=== PATIENT | male | born 1965 | race Caucasian/White ===

== ENCOUNTER 2017-08-20 10:03 | Emergency (ER) | payer OTHER ==
[2017-08-20 10:09] VITALS: BP 142/68
--- NOTE | 2017-08-20 10:40 | ER Document Report ---
ED Neck/Back Problem - General Chief Complaint: Neck Pain >24hrs old Stated Complaint: NECK PAIN Time Seen by Provider: 08/20/17 10:28 Mode of Arrival: Ambulatory Information source: Patient TRAVEL OUTSIDE OF THE [place] IN LAST 30 DAYS: No - HPI Patient complains to provider of: Pain, Neck Onset: Other - 3 days Where: Home Onset: Gradual Timing: Waxing and waning Quality of pain: Achy Severity: Moderate Pain Level: 4 Recent injury: No Associated symptoms: None Exacerbated by: Movement of neck Relieved by: Nothing Similar symptoms previously: Yes Recently seen / treated by doctor: Yes Notes: Patient is a 52-year-old male presenting to the emergency room complaining of pain to the right neck, symptoms have been going on over the past 3 days although he has had intermittent symptoms since 2002 when he initially injured his neck, he denies any new injury, no numbness or tingling to his extremities, [facility] but did not prescribe him anything for the pain, patient denies any fevers, no headaches , states he has not taken anything for the pain at home because Tylenol and Motrin does not help and he does not have anything additional for pain, he has been applying cold and heat packs intermittently, attempting to gently stretch the neck, with no relief, states he was unable to sleep last night due to the pain Past Medical History - General Information source: Patient - Social History Smoking Status: Current Every Day Smoker Family History: Reviewed & Not Pertinent Renal/ Medical History: Denies: Hx Peritoneal Dialysis Review of Systems - Review of Systems Constitutional: No symptoms reported EENT: No symptoms reported Cardiovascular: No symptoms reported Respiratory: No symptoms reported Gastrointestinal: No symptoms reported Genitourinary: No symptoms reported Male Genitourinary: No symptoms reported Musculoskeletal: See HPI Skin: No symptoms reported Hematologic/Lymphatic: No symptoms reported Neurological/Psychological: No symptoms reported -: Yes All other systems reviewed and negative Physical Exam - Vital signs Vitals: Temp Pulse Resp BP Pulse Ox 97.9 F 80 16 142/68 H 95 08/20/17 10:06 08/20/17 10:06 08/20/17 10:06 08/20/17 10:06 08/20/17 10:06 - Notes Notes: - General General appearance: Appears well, Alert In distress: None - HEENT Head: Normocephalic, Atraumatic Eyes: Normal Conjunctiva: Normal Extraocular movements intact: Yes Eyelashes: Normal Pupils: PERRL - Respiratory Respiratory status: No respiratory distress - Cardiovascular Rhythm: Regular - Abdominal Inspection: Normal - Back Back: Normal - Extremities General upper extremity: Normal inspection General lower extremity: Normal inspection - Neurological Neuro grossly intact: Yes Orientation: AAOx4 [place] Coma Scale Eye Opening: Spontaneous [place] Coma Scale Verbal: Oriented James Coma Scale Motor: Obeys Commands [place] Coma Scale Total: 15 - Psychological Associated symptoms: Normal affect, Normal mood - Skin Skin Temperature: Warm Skin Moisture: Dry Skin Color: Normal - HEENT Neck: Other - Tenderness to palpate in the paraspinal musculature of the right cervical spine, pain with range of motion testing including right side bending and rotation which is restricted as well, distal sensation and motor is intact Course - Re-evaluation Re-evalutation: 08/20/17 10:40 Patient was a flareup of chronic neck pain has been going on for the past few days, he was seen at the [facility] and had x-rays done but he was not prescribed any medication for it, he denies any new injury, I discussed various treatment modalities with him including gentle stretching, massage, physical therapy, anti -inflammatory pain medication, and muscle relaxers, patient states that in the past muscle relaxer seemed to help the most, therefore he was given a prescription for a few day supply of Flexeril, he was advised to follow-up with his primary care provider or return if symptoms worsen, patient acknowledges understanding and agreement with this plan - Vital Signs Vital signs: Temp Pulse Resp BP Pulse Ox 97.9 F 80 16 142/68 H 95 08/20/17 10:06 08/20/17 10:06 08/20/17 10:06 08/20/17 10:06 08/20/17 10:06 Discharge - Discharge Clinical Impression: Cervical strain, acute Qualifiers: Encounter type: initial encounter Qualified Code(s): S16.1XXA - Strain of muscle, fascia and tendon at neck level, initial encounter Condition: Stable Disposition: HOME, SELF-CARE Instructions: Neck Injury (Cervical Strain) ([facility]), Muscle Strain ([facility]), Muscle Relaxers ([facility]) Additional Instructions: Follow up with your primary care provider in one to 2 days. Return to the emergency room immediately if symptoms worsen or any additional concerns. Prescriptions: Cyclobenzaprine HCl [Flexeril 10 Mg Tablet] 10 mg PO TID #14 tablet
== END 2017-08-20 10:39 | disposition home or self-care (01) ==
LOC: ER 10:03
DX: S16.1XXA Strain of muscle, fascia and tendon at neck level, initial encounter (principal); M54.2 Cervicalgia; X58.XXXA Exposure to other specified factors, initial encounter
CPT/HCPCS: 99283

== ENCOUNTER 2017-11-23 08:07 | Emergency (ER) | payer OTHER ==
[2017-11-23] MEDS ORDERED: DEXAMETHASONE 4 MG TABLET PO ONE (08:49)
[2017-11-23] MEDS ORDERED: AMOXICILLIN TRIHYDRATE 500 MG CAPSULE PO ONE (08:49)
--- NOTE | 2017-11-23 08:56 | ER Document Report ---
ED General - General Chief Complaint: Cold Symptoms Stated Complaint: CONGESTION TRAVEL OUTSIDE OF THE [place] IN LAST 30 DAYS: No - HPI Patient complains to provider of: Cold symptoms sinus pressure Notes: Patient states cough cold with yellow green sputum sinus pressure ongoing for the last 2 weeks. Patient states intermittent fevers night sweats. Patient denies any recent travel any recent antibiotics. Patient resting comfortably upon my evaluation. - Related Data Allergies/Adverse Reactions: Tetanus Vaccines and Toxoid Allergy (Verified 11/23/17 08:12) Past Medical History - Social History Smoking Status: Current Every Day Smoker Frequency of alcohol use: Heavy Drug Abuse: None Family History: Reviewed & Not Pertinent Patient has suicidal ideation: No Patient has homicidal ideation: No - Past Medical History Cardiac Medical History: Reports: Hx Hypertension Endocrine Medical History: Reports: Hx Diabetes Mellitus Type 2 Renal/ Medical History: Denies: Hx Peritoneal Dialysis Review of Systems - Review of Systems Constitutional: No symptoms reported EENT: Eye discharge, Nose pain, Nose congestion Cardiovascular: No symptoms reported Respiratory: No symptoms reported Gastrointestinal: No symptoms reported Genitourinary: No symptoms reported Male Genitourinary: No symptoms reported Musculoskeletal: No symptoms reported Skin: No symptoms reported Hematologic/Lymphatic: No symptoms reported Neurological/Psychological: No symptoms reported -: Yes All other systems reviewed and negative Physical Exam - Vital signs Vitals: Temp Pulse Resp BP Pulse Ox 97.6 F 97 21 H 123/68 95 11/23/17 08:13 11/23/17 08:13 11/23/17 08:13 11/23/17 08:13 11/23/17 08:13 Interpretation: Normal - General General appearance: Appears well, Alert - HEENT Head: Normocephalic, Atraumatic Eyes: Normal Conjunctiva: Normal Cornea: Normal Extraocular movements intact: Yes Eyelashes: Normal Pupils: PERRL Ears: Normal External canal: Normal Tympanic membrane: Normal Sinus: Frontal, Maxillary Nasal: Normal Pharynx: Normal Neck: Normal - Respiratory Respiratory status: No respiratory distress Chest status: Nontender Breath sounds: Normal Chest palpation: Normal - Cardiovascular Rhythm: Regular Heart sounds: Normal auscultation Murmur: No - Abdominal Inspection: Normal Distension: No distension Bowel sounds: Normal Tenderness: Nontender Organomegaly: No organomegaly - Back Back: Normal, Nontender - Extremities General upper extremity: Normal inspection, Nontender, Normal color, Normal ROM , Normal temperature General lower extremity: Normal inspection, Nontender, Normal color, Normal ROM , Normal temperature, Normal weight bearing. No: Greg's sign - Neurological Neuro grossly intact: Yes Cognition: Normal Orientation: AAOx4 James Coma Scale Eye Opening: Spontaneous James Coma Scale Verbal: Oriented [place] Coma Scale Motor: Obeys Commands [place] Coma Scale Total: 15 Speech: Normal Motor strength normal: LUE, RUE, LLE, RLE Sensory: Normal - Psychological Associated symptoms: Normal affect, Normal mood - Skin Skin Temperature: Warm Skin Moisture: Dry Skin Color: Normal Course - Re-evaluation Re-evalutation: 11/23/17 14:55 Patient symptoms are consistent with sinusitis. Due to length of symptoms ongoing for the last 2 weeks. Splint patient I will start him on amoxicillin. Patient is diabetic I will give him 1 dose of Decadron. Patient was educated that this will make his blood sugars elevated. Did not think this would cause any DKA or HHS. Patient also has a history of hypertension explained to the patient follow-up with his pharmacist for [id number] sinus decongestant medication - Vital Signs Vital signs: Temp Pulse Resp BP Pulse Ox 97.7 F 74 18 122/73 97 11/23/17 09:27 11/23/17 09:27 11/23/17 09:27 11/23/17 09:27 11/23/17 09:27 Discharge - Discharge Clinical Impression: Sinusitis Qualifiers: Sinusitis location: maxillary Chronicity: acute Recurrence: not specified as recurrent Qualified Code(s): J01.00 - Acute maxillary sinusitis, unspecified Condition: Good Disposition: HOME, SELF-CARE Instructions: Sinusitis ([facility]) Additional Instructions: Your examination today is consistent with a sinusitis. We will start you on amoxicillin antibiotic regimen due to symptoms been ongoing for approximately 2 weeks. He did receive a dose of steroids here in the ER which may cause your blood sugars to run little elevated for the next few days however this will help open up her sinuses make you feel better. Because of your blood pressure issues he will have to be very careful with decongestant medications. He may ask your pharmacist about [id number]-[id number] decongestants that would not affect your blood pressure such as a Coricidin HBP. I would also recommend that if you are not taking an antihistamine such as Zyrtec or Claritin that she start. This also help out with your symptoms. Continue to drink plenty of fluids to stay hydrated. For your cough he may use lgce-iev-[id number] lozenges or try honey mixed with your favorite drink. Follow-up with your primary care physician in 1-2 weeks. Prescriptions: Amoxicillin Trihydrate [Amoxil 500 mg Capsule] 500 mg PO TID #30 cap
[2017-11-23 09:27] VITALS: BP 122/73
== END 2017-11-23 09:30 | disposition home or self-care (01) ==
LOC: ER 08:07
DX: J01.00 Acute maxillary sinusitis, unspecified (principal); R09.81 Nasal congestion; R50.9 Fever, unspecified; F17.200 Nicotine dependence, unspecified, uncomplicated
CPT/HCPCS: 99284

== ENCOUNTER 2017-12-17 14:17 | Emergency (ER) | payer OTHER ==
[2017-12-17] MEDS ORDERED: BUPIVACAINE HCL 0.5 % INJ/PF 30 ML SDV INJ ONE (15:13)
--- NOTE | 2017-12-17 15:21 | ER Document Report ---
ED General - General Chief Complaint: Puncture Wound Stated Complaint: FINGER INJURY Time Seen by Provider: 12/17/17 15:13 Mode of Arrival: Ambulatory Information source: Patient Notes: 52 yr old male presents with drill injury to the left hand finger , pt dneies any other injuries, pt has anaphylaxis to tetanus TRAVEL OUTSIDE OF THE [place] IN LAST 30 DAYS: No COUNTRY TRAVELED TO/FROM: [facility] Onset: Just prior to arrival Onset/Duration: Sudden Quality of pain: Sharp Severity: Mild Pain Level: 1 Associated symptoms: Other Exacerbated by: Denies Relieved by: Denies Similar symptoms previously: No Recently seen / treated by doctor: No - Related Data Allergies/Adverse Reactions: Tetanus Vaccines and Toxoid Allergy (Verified 12/17/17 14:18) Past Medical History - Social History Smoking Status: Current Every Day Smoker Cigarette use (# per day): Yes Chew tobacco use (# tins/day): No Smoking Education Provided: No Frequency of alcohol use: Heavy Drug Abuse: None Family History: Reviewed & Not Pertinent Patient has suicidal ideation: No Patient has homicidal ideation: No - Past Medical History Cardiac Medical History: Reports: Hx Hypercholesterolemia, Hx Hypertension Endocrine Medical History: Reports: Hx Diabetes Mellitus Type 2 Renal/ Medical History: Denies: Hx Peritoneal Dialysis Past Surgical History: Reports: Hx Orthopedic Surgery - LEFT ULNAR Review of Systems - Review of Systems Notes: REVIEW OF SYSTEMS: CONSTITUTIONAL : Denies fever, chills, or sweats. Denies recent illness. EENT: Denies eye, ear, throat, or mouth pain or symptoms. Denies nasal or sinus congestion or discharge. Denies throat, tongue, or mouth swelling or difficulty swallowing. CARDIOVASCULAR: Denies chest pain. Denies palpitations or racing or irregular heart beat. Denies ankle edema. RESPIRATORY: Denies cough, cold, or chest congestion. Denies shortness of breath, difficulty breathing, or wheezing. GASTROINTESTINAL: Denies abdominal pain or distention. Denies nausea, vomiting , or diarrhea. Denies blood in vomitus, stools, or per rectum. Denies black, tarry stools. Denies constipation. GENITOURINARY: Denies difficulty urinating, painful urination, burning, frequency, blood in urine, or discharge. MUSCULOSKELETAL: Denies back or neck pain or stiffness. Denies joint pain or swelling. SKIN: Denies rash, lesions or sores. HEMATOLOGIC : Denies easy bruising or bleeding. LYMPHATIC: Denies swollen, enlarged glands. NEUROLOGICAL: Denies confusion or altered mental status. Denies passing out or loss of consciousness. Denies dizziness or lightheadedness. Denies headache. Denies weakness or paralysis or loss of use of either side. Denies problems with gait or speech. Denies sensory loss, numbness, or tingling. Denies seizures. PSYCHIATRIC: Denies anxiety or stress. Denies depression, suicidal ideation, or homicidal ideation. ALL OTHER SYSTEMS REVIEWED AND NEGATIVE. Dictation was performed using [employer] recognition software PHYSICAL EXAMINATION: GENERAL: Well-appearing, well-nourished and in no acute distress. HEAD: Atraumatic, normocephalic. EYES: Pupils equal round and reactive to light, extraocular movements intact, sclera anicteric, conjunctiva are normal. ENT: Nares patent, oropharynx clear without exudates. Moist mucous membranes. NECK: Normal range of motion, supple without lymphadenopathy LUNGS: Breath sounds clear to auscultation bilaterally and equal. No wheezes rales or rhonchi. HEART: Regular rate and rhythm without murmurs ABDOMEN: Soft, nontender, nondistended abdomen. No guarding, no rebound. No masses appreciated. Musculoskeletal: Normal range of motion, no pitting or edema. No cyanosis. NEUROLOGICAL: Cranial nerves grossly intact. Normal speech, normal gait. Normal sensory, motor exams PSYCH: Normal mood, normal affect. SKIN: left hand lateral aseepct circuliar laceration less than 0.5cm Physical Exam - Vital signs Vitals: Temp Pulse Resp BP Pulse Ox 98.4 F 74 16 137/76 H 95 12/17/17 14:31 12/17/17 14:31 12/17/17 14:31 12/17/17 14:31 12/17/17 14:31 Course - Re-evaluation Re-evalutation: 12/17/17 15:21 Concern for bony involvement, patient had digital nerve block performed x-ray pending 12/17/17 16:13 Area was cleansed extensively patient will be started on antibiotics, x-ray noted no significant abnormality, patient will be given follow-up with his specialist for further care. Very strict return precautions have been provided for infected puncture wound After performing a Medical Screening Examination, I estimate there is LOW risk for OPEN FRACTURE, COMPARTMENT SYNDROME, TENDON RUPTURE, ACUTE NEUROVASCULAR INJURY, or RETAINED FOREIGN BODY, thus I consider the discharge disposition reasonable. Also, there is no evidence or peritonitis, sepsis, or toxicity. I have reevaluated this patient multiple times and no significant life threatening changes are noted. The patient and I have discussed the diagnosis and risks, and we agree with discharging home with close follow-up with the understanding that symptoms and presentations can change. We also discussed returning to the Emergency Department immediately if new or worsening symptoms occur. We have discussed the symptoms which are most concerning (e.g., changing or worsening pain, fever, numbness, weakness, cool or painful digits) that necessitate immediate return. - Vital Signs Vital signs: Temp Pulse Resp BP Pulse Ox 98.6 F 60 20 130/71 H 93 12/17/17 16:04 12/17/17 16:04 12/17/17 16:04 12/17/17 16:04 12/17/17 16:04 - Diagnostic Test Radiology reviewed: Image reviewed, Reports reviewed Procedures - Additional Procedures digital nerve block Time performed: 15:21 - using 10 cc of sensoicraine 0.5% without epi with ocmplte relief Discharge - Discharge Clinical Impression: Puncture wound of finger of left hand Qualifiers: Encounter type: initial encounter Qualified Code(s): S61.239A - Puncture wound without foreign body of unspecified finger without damage to nail, initial encounter Condition: Stable Disposition: HOME, SELF-CARE Instructions: Delayed Wound Closure ([facility]), Puncture Wound ([facility]) Prescriptions: Hydrocodone/Acetaminophen [[place] 5-325 mg Tablet] 1 tab PO Q6 #10 tablet Sulfamethoxazole/Trimethoprim [Bactrim Ds Tablet] 1 each PO BID #20 tablet Referrals: ANTON HANKS DO [ACTIVE STAFF] - Follow up in 3-5 days
--- NOTE | 2017-12-17 15:51 | RADIOLOGY REPORT (SQ) ---
EXAM DESCRIPTION: FINGER LEFT COMPLETED DATE/TIME: 12/17/2017 3:31 pm REASON FOR STUDY: drill injury COMPARISON: None. NUMBER OF VIEWS: Three views. TECHNIQUE: AP view of the left hand and lateral, and oblique images acquired of the left third finge r. LIMITATIONS: None. FINDINGS: MINERALIZATION: Normal. BONES: No acute fracture or dislocation. SOFT TISSUES: Skin irregularity is noted at the tip of the 3rd finger. No radiopaque foreign body. IMPRESSION: Skin irregularity at the tip of the 3rd finger, may represent a laceration. No radiogra phic evidence for acute fracture. COMMENT: SITE OF TRAUMA/COMPLAINT MARKED/STAMP COMPLETED: YES. TECHNICAL DOCUMENTATION: JOB ID: [id number] 2010 [employer]- All Rights Reserved
[2017-12-17 16:08] VITALS: BP 130/71
== END 2017-12-17 16:14 | disposition home or self-care (01) ==
LOC: ER 14:17
DX: S61.239A Puncture wound without foreign body of unspecified finger without damage to nail, initial encounter (principal); W29.8XXA Contact with other powered hand tools and household machinery, initial encounter; Y93.89 Activity, other specified; E11.9 Type 2 diabetes mellitus without complications; I10 Essential (primary) hypertension; F17.210 Nicotine dependence, cigarettes, uncomplicated; Z87.892 Personal history of anaphylaxis; Z88.7 Allergy status to serum and vaccine
CPT/HCPCS: 99283; 73140; 64450; J3490

== ENCOUNTER 2018-12-11 13:03 | Emergency (ER) | payer OTHER ==
[2018-12-11 13:12] VITALS: BP 148/67
--- NOTE | 2018-12-11 14:39 | ER Document Report ---
HPI - HPI Time Seen by Provider: 12/11/18 13:56 Pain Level: 4 Notes: Patient is a 53-year-old male presenting with severe sinus pressure, cough, sore throat and nasal drainage over the last 2 weeks. Patient reports that he has a history of getting a sinus infection every year around this time. He has tried taking [id number]-[id number] medications without resolve. He denies any nausea, vomiting or diarrhea. He denies any fevers or chills. - EENT EENT: REPORTS: Sore Throat - RESPIRATORY Respiratory: REPORTS: Coughing Past Medical History - General Information source: Patient - Social History Smoking Status: Current Every Day Smoker Frequency of alcohol use: Occasional Drug Abuse: None Family History: Reviewed & Not Pertinent Patient has suicidal ideation: No Patient has homicidal ideation: No - Past Medical History Cardiac Medical History: Reports: Hx Hypercholesterolemia, Hx Hypertension Endocrine Medical History: Reports: Hx Diabetes Mellitus Type 2 Renal/ Medical History: Denies: Hx Peritoneal Dialysis Past Surgical History: Reports: Hx Orthopedic Surgery - LEFT ULNAR Vertical Provider Document - CONSTITUTIONAL Notes: PHYSICAL EXAMINATION: GENERAL: Well-appearing, well-nourished and in no acute distress. HEAD: Atraumatic, normocephalic. Tenderness to palpation over maxillary and frontal sinuses. EYES: Pupils equal round extraocular movements intact, conjunctiva are normal. ENT: Nares patent with clear rhinorrhea. NECK: Normal range of motion, no cervical lymphadenopathy noted. LUNGS: No respiratory distress, lung sounds clear to auscultation bilaterally. Musculoskeletal: Normal range of motion NEUROLOGICAL: Normal speech, normal gait. PSYCH: Normal mood, normal affect. SKIN: Warm, Dry, normal turgor, no rashes or lesions noted. - INFECTION CONTROL TRAVEL OUTSIDE OF THE [place] IN LAST 30 DAYS: No COUNTRY TRAVELED TO/FROM: [place] Course - Re-evaluation Re-evalutation: History and physical exam are most consistent with acute sinusitis. Patient has a history of same. Will start patient on antibiotics due to length of time patient has been sick and failed outpatient treatment with [id number]-[id number] medications. Patient will follow up with his primary care provider for follow- up next week. - Vital Signs Vital signs: Temp Pulse Resp BP Pulse Ox 98.6 F 86 18 148/67 H 93 12/11/18 13:11 12/11/18 13:11 12/11/18 13:11 12/11/18 13:11 12/11/18 13:11 Discharge - Discharge Clinical Impression: Sinusitis Qualifiers: Sinusitis location: unspecified location Chronicity: acute Recurrence: recurrent Qualified Code(s): J01.91 - Acute recurrent sinusitis, unspecified Condition: Stable Disposition: HOME, SELF-CARE Additional Instructions: Sinusitis You have sinusitis, an infection of the sinus cavities of the face. The sinuses are air-filled chambers which open into the inside of the nose. Bacteria and pus fill a sinus, causing pain, drainage, and fever. Sinusitis is treated with antibiotics. Often, expectorants (to thin the sinus mucous) or decongestants (to reduce swelling) are prescribed as well. Healing requires seven to 10 days. Avoid chemical fumes, pollens, dusts, and smoke (especially cigarette smoke). Keep the air humidified in your bedroom and work area and take plenty of liquids by mouth. This condition can be serious if the infection spreads. If your symptoms worsen, or if you develop severe headache, high fever, stiff neck, or a rash, you must call the doctor or return for re-evaluation. Prescriptions: Amox Tr/Potassium Clavulanate [Augmentin 875-125 mg Tablet] 1 tab PO BID #20 tablet Forms: Return to Work [facility]errals: [facility] [Primary [facility]] - Follow up as needed
== END 2018-12-11 14:45 | disposition home or self-care (01) ==
LOC: ER 13:03
DX: J01.91 Acute recurrent sinusitis, unspecified (principal); F17.200 Nicotine dependence, unspecified, uncomplicated; E78.00 Pure hypercholesterolemia, unspecified; I10 Essential (primary) hypertension; E11.9 Type 2 diabetes mellitus without complications
CPT/HCPCS: 99283

== ENCOUNTER 2019-04-27 16:06 | Emergency (ER) | payer OTHER ==
[2019-04-27] MEDS ORDERED: HYDROCODONE/ACETAMINOPHEN 5-325 MG (6 TAB/ER DISP) PO PRN (17:41)
[2019-04-27] MEDS ORDERED: LIDOCAINE 5% (700 MG) TRANSDERMAL ADH..PATCH TP ONE (17:42)
[2019-04-27] MEDS ORDERED: ACETAMINOPHEN 325 MG TABLET PO ONE (17:42)
--- NOTE | 2019-04-27 17:47 | ER Document Report ---
HPI - HPI Patient complains to provider of: L shoulder pain Time Seen by Provider: 04/27/19 17:34 Pain Level: 5 Context: 54-year-old male presents the emergency department with chief complaint of left shoulder pain. He said he had a surgery in 2001 for a SLAP repair and everything was fine until about 1 month ago. 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 He said the pain is been so severe that he can take it a unable to get into the [place] for an appointment. He did have an MRI at [facility] but was unable to "fit into the tube" and the imaging was aborted. Since then he has been unable to contact them and is been suffering in pain. 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 No other complaints Past Medical History - Social History Smoking Status: Unknown if Ever Smoked Family History: Reviewed & Not Pertinent Patient has suicidal ideation: No Patient has homicidal ideation: No - Past Medical History Cardiac Medical History: Reports: Hx Hypercholesterolemia, Hx Hypertension Endocrine Medical History: Reports: Hx Diabetes Mellitus Type 2 Renal/ Medical History: Denies: Hx Peritoneal Dialysis Past Surgical History: Reports: Hx Orthopedic Surgery - LEFT ULNAR Vertical Provider Document - CONSTITUTIONAL Notes: PHYSICAL EXAMINATION: Reviewed vital signs and charting by RN GENERAL: Alert, interacts well. No acute distress. HEAD: Normocephalic, atraumatic. EYES: Pupils equal and round. Extraocular movements intact. ENT: Oral mucosa moist, tongue midline. NECK: Full range of motion. Trachea midline. LUNGS: Clear to auscultation bilaterally, no wheezes, rales, or rhonchi. No respiratory distress. HEART: Regular rate and rhythm. No murmur ABDOMEN: soft, non-tender. No distention. Bowel sounds present EXTREMITIES: Moves all 4 extremities spontaneously. No edema, No cyanosis. Acute bicipital tendon tenderness when pronating patient's hand and having him flex the elbow, acute tenderness to palpation over the deltoid muscle and joint PSYCH: Normal affect, normal mood. SKIN: Warm, dry, normal turgor. No rashes or lesions noted. - INFECTION CONTROL TRAVEL OUTSIDE OF THE [place] IN LAST 30 DAYS: No COUNTRY TRAVELED TO/FROM: [place] Course - Re-evaluation Re-evalutation: 04/27/19 17:48 Patient presents with acute on chronic shoulder pain. Imaging is not warranted at this time. There are no red flags concerning for septic arthritis or any concerning symptoms for adhesive capsulitis. I will provide him a sling for comfort, Lidoderm patch, Tylenol, and instructed to take Motrin. I will give him a very short course of [place] to help him sleep at night. He is stable for discharge - Vital Signs Vital signs: Temp Pulse Resp BP Pulse Ox 98.3 F 74 18 146/62 H 96 04/27/19 16:14 04/27/19 16:14 04/27/19 16:14 04/27/19 16:14 04/27/19 16:14 Discharge - Discharge Clinical Impression: Left shoulder pain Qualifiers: Chronicity: unspecified Qualified Code(s): M25.512 - Pain in left shoulder Condition: Good Disposition: HOME, SELF-CARE Additional Instructions: You were seen in the emergency department this afternoon for shoulder pain. Unfortunately, there is nothing we can do at this time because your knee is most likely due to either a rotator cuff muscle injury or a ligamentous tear. [facility] to decide if you need another surgery on the shoulder. I have provided you with the sling in case she needed to help rest it. Also, I have given you a very short course of pain medication here in the ER and I recommend that you take it only at night to help you sleep. Also, we have placed a Lidoderm patch on the shoulder and hopefully that will help to numb up the shoulder little bit as well. After you get home and eat dinner please take Motrin 600 mg and then take Motrin 600 mg every 6 hours after that with food or milk. Also, take Tylenol 1000 mg every 6 hours for pain. If you develop paralysis of the arm, severe numbness or tingling, your fingers or hand starts to turn blue or purple, or you have any other concerning symptoms please merely return to the emergency department. Referrals: [facility] [Primary [facility]] - Follow up as needed
[2019-04-27 18:01] VITALS: BP 141/61
== END 2019-04-27 17:59 | disposition home or self-care (01) ==
LOC: ER 16:06
DX: M25.512 Pain in left shoulder (principal); G89.29 Other chronic pain; I10 Essential (primary) hypertension; E11.9 Type 2 diabetes mellitus without complications; Z98.890 Other specified postprocedural states
CPT/HCPCS: 99283